=== PATIENT | male | born 1960 | race Caucasian/White ===

== ENCOUNTER 2016-08-01 13:17 | Inpatient (IN) | payer OTHER ==
[~2016-08-01] VITALS: Ht 160 cm; Wt 72.6 kg
[2016-08-01 13:17] VITALS: BP 79/41; PULSE 115; RESP 16; TEMP 98.9; O2SAT 94
[~2016-08-01 13:17] MED LIST: LIDOCAINE JECT 2% PF 100 MG/5ML SYRINGE ONE; SODIUM BICARBONATE 8.4% JECT 50 MEQ/50 ML SYRINGE ONE
[2016-08-01] MEDS ORDERED: NS 1000 ML BAG IV ONE (13:30)
[2016-08-01] MEDS ORDERED: cefTRIAXone 1 GM in D5W 50 ML IV ONE (13:30)
[2016-08-01] MEDS ORDERED: cefTRIAXone 1 GM VIAL ONE (14:19)
[2016-08-01 14:20] LABS: HEMATOCRIT 36.6 % (36-54); HEMOGLOBIN 12.8 g/dL (14.0-18.0); MEAN CORPUSCULAR HEMOGLOBIN 34 pg (27-31); MEAN CORPUSCULAR HGB CONC 35 % (32-36); MEAN CORPUSCULAR VOLUME 98 fL (79.0-98.0); PLATELET COUNT (AUTO) 63 K/uL (130-430); RED BLOOD CELL COUNT(AUTO) 3.74 MIL/uL (4.2-6.2)
[2016-08-01 14:30] LABS: WHITE BLOOD COUNT (AUTO) 3.6 K/uL (4.8-10.8)
[2016-08-01 14:39] LABS: CALCIUM 8.1 mg/dL (8.4-11.0); CREATININE 1.41 mg/dL (0.55-1.30); POTASSIUM 3.2 mmol/L (3.5-5.1)
[2016-08-01 14:44] LABS: ALBUMIN 2.6 g/dL (3.4-4.8); INR 1.6 (0.80-1.20); PROTHROMBIN TIME 17.6 SECS (9.5-12.5); TOTAL BILIRUBIN 3.8 mg/dL (0.0-1.0); TOTAL PROTEIN, SERUM 6.4 g/dL (6.4-8.3)
[2016-08-01 14:52] LABS: ATYPICAL LYMPHOCYTES % 0 % (0-0); BAND % (MANUAL) 15 % (0-6); BASOPHILS % (MANUAL) 0 % (0-2); EOSINOPHILS % (MANUAL) 0 % (0-7); LYMPHOCYTES % (MANUAL) 37 % (20-46); MONOCYTES % (MANUAL) 2 % (0-11)
[2016-08-01] MEDS ORDERED: PIPERACILLIN/TAZO 3.375 GM in NS 50 ML IV ONE (15:00)
[2016-08-01] MEDS ORDERED: LEVE100S GT (15:26)
[2016-08-01] MEDS ORDERED: HYDR-1189 GT (15:26)
[2016-08-01] MEDS ORDERED: SENN8.6T19 GT (15:26)
[2016-08-01] MEDS ORDERED: PRO40 GT (15:26)
[2016-08-01] MEDS ORDERED: FERR300S GT (15:26)
[2016-08-01] MEDS ORDERED: DOCU-144 GT (15:26)
[2016-08-01] MEDS ORDERED: ASCO500S2 GT (15:26)
[2016-08-01] MEDS ORDERED: GLYC1TAB9 GT (15:26)
[2016-08-01] MEDS ORDERED: LACO200T2 GT (15:26)
[2016-08-01] MEDS ORDERED: LIQUID PROTEIN GT (15:26)
[2016-08-01] MEDS ORDERED: TYL160/5 GT (15:26)
[2016-08-01] MEDS ORDERED: MODA200T30 GT (15:26)
[2016-08-01] MEDS ORDERED: IBUP-1479 GT (15:26)
[2016-08-01] MEDS ORDERED: METO-290 GT (15:26)
[2016-08-01] MEDS ORDERED: IBUP-1969 GT (15:26)
[2016-08-01] MEDS ORDERED: PIPERACILLIN/TAZOBACTAM 3.375 GM/VIAL (ZOSYN) IV ONE (15:28)
[2016-08-01] MEDS ORDERED: VANCOMYCIN HCL 1,000 MG in NS 250 ML IV ONE (15:45)
[2016-08-01] MEDS ORDERED: NOREPINEPHRINE BITARTRATE 4 MG in NS 250 ML IV ONE ×2 (15:45→16:00)
[2016-08-01] MEDS ORDERED: KCL 20 mEq in D5/0.45NS 1000mL 1,000 ML IV ONE (15:45)
[2016-08-01] MEDS ORDERED: NOREPINEPHRINE 4 MG/4 ML VIAL IV ONE (15:58)
[2016-08-01] MEDS ORDERED: VANCOMYCIN HCL 1000 MG/VIAL IV ONE (16:12)
[2016-08-01 16:59] LABS: BLOOD GAS PH 7.336 (7.350-7.450)
[2016-08-01 17:00] LABS: ABG TOTAL HEMOGLOBIN 11.8 G/dL (12.0-18.0); BLOOD GAS BASE EXCESS -11.1 mmol/L (-3.0-3.0); BLOOD GAS COHb% 0.5 % (0.5-1.5); BLOOD O2Hb% 96.1 % (94.0-97.0)
[2016-08-01] MEDS ORDERED: SODIUM BICARBONATE 8.4% JECT 100 MEQ in 0.45% NACL 1,000 ML IV SCH (17:15)
[2016-08-01] MEDS ORDERED: methylPREDNISolone SOD SUCC/PF 62.5 MG/ML VIAL IVP ONE (18:00)
[2016-08-01] MEDS ORDERED: HYDROcodone/ACETAMIN 5-325 MG TAB (NORCO/ VICODIN) GT PRN (18:00)
[2016-08-01] MEDS ORDERED: MILK OF MAGNESIA 30 ML UDC PO PRN (18:00)
[2016-08-01] MEDS ORDERED: SENNOSIDES 8.6 MG TABLET GT PRN (18:00)
[2016-08-01] MEDS ORDERED: methylPREDNISolone SOD SUCC/PF 62.5 MG/ML VIAL IVP SCH (18:00)
[2016-08-01] MEDS ORDERED: ACETAMINOPHEN 325 MG TABLET GT PRN (18:00)
[2016-08-01] MEDS ORDERED: METOCLOPRAMIDE HCL 10 MG TABLET GT PRN (18:00)
[2016-08-01] MEDS ORDERED: methylPREDNISolone SOD SUCC/PF 62.5 MG/ML VIAL ONE (18:04)
[2016-08-01] MEDS ORDERED: IPRATROPIUM/ALBUTEROL SULFATE 3 ML AMPUL.NEB INH SCH (19:00)
[2016-08-01] MEDS ORDERED: NOREPINEPHRINE BITARTRATE 4 MG in D5W 246 ML IV PRN (19:15)
[2016-08-01 19:35] LABS: INR 4.7 (0.80-1.20); PROTHROMBIN TIME 53.5 SECS (9.5-12.5)
[2016-08-01] MEDS ORDERED: PHYTONADIONE 10 MG in NS 50 ML IV ONE ×2 (19:45→20:00)
[2016-08-01] MEDS ORDERED: DOPamine PREMIX 250 ML IV ONE (20:33)
[2016-08-01] MEDS ORDERED: DOCUSATE SODIUM 100 MG CAPSULE PO SCH (21:00)
[2016-08-01] MEDS ORDERED: LACOSAMIDE 100 MG TABLET GT SCH (21:00)
[2016-08-01] MEDS ORDERED: LACTOBACILLUS RHAMNOSUS GG 1 CAP CAPSULE GT SCH (21:00)
[2016-08-01] MEDS ORDERED: MODAFINIL 100 MG TABLET (PROVIGIL) GT SCH (21:00)
[2016-08-01] MEDS ORDERED: GLYCOPYRROLATE 1 MG TABLET GT SCH (21:00)
[2016-08-01] MEDS ORDERED: NS 500 ML IV ONE (21:30)
[2016-08-01] MEDS ORDERED: D5W IV ONE (21:41)
[2016-08-01] MEDS ORDERED: LIDOCAINE 2 GM/500 ML IV ONE (21:41)
[2016-08-01] MEDS ORDERED: HYDROCORTISONE SOD SUCC 100 MG/2 ML VIAL IVP SCH (22:00)
[2016-08-01 22:06] LABS: BLOOD GAS PH 7.175 (7.350-7.450)
[2016-08-01 22:07] LABS: ABG TOTAL HEMOGLOBIN 11.3 G/dL (12.0-18.0); BLOOD GAS BASE EXCESS -18.8 mmol/L (-3.0-3.0); BLOOD GAS COHb% 0.1 % (0.5-1.5); BLOOD GAS HHB 0.8 % (0.0-6.0); BLOOD O2Hb% 98.3 % (94.0-97.0)
[2016-08-01] MEDS ORDERED: LIDOCAINE 2 GM/500 ML IV PRN (22:15)
[2016-08-01] MEDS ORDERED: D5W IV PRN (22:15)
[2016-08-01] MEDS ORDERED: AMIODARONE HCL 150 MG/3ML VIAL IVP ONE (23:00)
[2016-08-01] MEDS ORDERED: AMIODARONE HCL 900 MG in D5W 482 ML IV SCH (23:00)
[2016-08-01] MEDS ORDERED: ACETAMINOPHEN 650 MG SUPP.RECT RC ONE (23:19)
[2016-08-01] MEDS ORDERED: ACETAMINOPHEN 325 MG SUPP.RECT RC ONE (23:20)
[2016-08-01] MEDS ORDERED: AMIODARONE HCL 900 MG/18 ML VIAL IV ONE (23:25)
[2016-08-02] MEDS ORDERED: PIPERACILLIN/TAZO 3.375/DEX-IS 50 ML IV SCH
[2016-08-02 00:45] VITALS: BP 153/98; PULSE 65; RESP 18; TEMP 100; O2SAT 100
[2016-08-02 00:57] VITALS: BP 153/98; PULSE 78
[2016-08-02] MEDS ORDERED: PANTOPRAZOLE SODIUM 40 MG TAB GT SCH (09:00)
== END 2016-08-02 05:06 | disposition expired | DRG 871 ==
LOC: SED 13:17 → MERGE 15:42 → SIC 15:42
PROVIDERS: ADMIT Family Medicine; ATTEND Family Medicine
PROC: 5A1935Z Respiratory Ventilation, Less than 24 Consecutive Hours (ICD-10-PCS; principal; 2016-08-01)
PROC: 30233R1 Transfusion of Nonautologous Platelets into Peripheral Vein, Percutaneous Approach (ICD-10-PCS; 2016-08-01)
PROC: 5A12012 Performance of Cardiac Output, Single, Manual (ICD-10-PCS; 2016-08-01)
DX: A41.9 Sepsis, unspecified organism (principal); E43 Unspecified severe protein-calorie malnutrition; J96.20 Acute and chronic respiratory failure, unspecified whether with hypoxia or hypercapnia; R65.21 Severe sepsis with septic shock; N39.0 Urinary tract infection, site not specified; I62.9 Nontraumatic intracranial hemorrhage, unspecified; Z68.1 Body mass index [BMI] 19.9 or less, adult; D64.9 Anemia, unspecified; I10 Essential (primary) hypertension; G40.909 Epilepsy, unspecified, not intractable, without status epilepticus; K21.9 Gastro-esophageal reflux disease without esophagitis; R31.9 Hematuria, unspecified; M19.90 Unspecified osteoarthritis, unspecified site; Z86.73 Personal history of transient ischemic attack (TIA), and cerebral infarction without residual deficits; Z93.0 Tracheostomy status; Z79.899 Other long term (current) drug therapy; I46.9 Cardiac arrest, cause unspecified
CPT/HCPCS: 36415; 36600; 71010; 80053; 82803-TC; 83605; 85007; 85027; 85610-TC; 85730-TC; 86886; 86900; 86901; 87040-TC; 87186-TC; 93005; 94002; 94640; 96365; 96366; 96367; 96368; 96375; 99291; J0282; J0696; J1265; J2001; J2543; J2930; J3370; J3430; J7030; J7050; J7060; P9034